=== PATIENT | male | born 1985 | race Caucasian/White ===

== ENCOUNTER 2018-06-23 11:16 | Inpatient (IN) | payer OTHER ==
[~2018-06-23] VITALS: Ht 167.6 cm; Wt 70.3 kg
[2018-06-23 12:16] LABS: BASOPHILS % 0.1 % (0.0-1.0); HEMATOCRIT 38.8 % (38.2-49.6); HEMOGLOBIN 13.9 g/dL (14.0-18.0); LYMPHOCYTES # (AUTO) 0.8 (1.0-3.2); LYMPHOCYTES % 4.4 % (18.0-39.1); MEAN CORPUSCULAR HEMOGLOBIN 28.8 pg (28-32); MEAN CORPUSCULAR HGB CONC 35.8 g/dL (31-35); MEAN CORPUSCULAR VOLUME 80.5 fL (81-99); MONOCYTES % 5.7 % (4.4-11.3); NEUTROPHILS # (AUTO) 15.7 (2.1-6.9); NEUTROPHILS % 89.4 % (38.7-80.0); PLATELET COUNT 179 x10e3/uL (140-360); RED BLOOD COUNT 4.82 x10e6/uL (4.3-5.7); RED CELL DISTRIBUTION WIDTH 12.9 % (11.7-14.4)
[2018-06-23 12:31] LABS: INR 0.98; PROTHROMBIN TIME 13.9 seconds (11.9-14.5)
[2018-06-23 12:32] LABS: PARTIAL THROMBOPLASTIN TIME 26.9 seconds (23.8-35.5)
[2018-06-23 12:35] LABS: ANION GAP 18.8 mmol/L (8-16); CALCIUM 8.8 mg/dL (8.4-10.2); CREATININE, SERUM 1.41 mg/dL (0.72-1.25); POTASSIUM 4.8 mmol/L (3.5-5.1)
[2018-06-23] MEDS ORDERED: SODIUM CHLORIDE 0.9% 1000ML 1,000 ML ONE (12:35)
[2018-06-23] MEDS ORDERED: SODIUM CHLORIDE 0.9% 1000ML 1,000 ML IV ONE ×2 (12:45→15:00)
--- NOTE | 2018-06-23 14:42 | Diagnostic Imaging Report ---
EXAMINATION: PA and lateral views of the chest. COMPARISON: None CLINICAL HISTORY: Cough, shortness of breath DISCUSSION: Lines/tubes: None. Lungs: The lungs are well inflated and clear. No pneumonia or pulmonary edema. Pleura: No pleural effusion or pneumothorax. Heart and mediastinum: The cardiomediastinal silhouette is normal. Bones and soft tissues: No acute bony abnormalities. IMPRESSION: No acute cardiopulmonary abnormalities. Signed by: Dr. Galileo Zepeda M.D. on 06/23/2018 2:38 PM
[2018-06-23 14:51] LABS: BILIRUBIN,URINE NEGATIVE (NEGATIVE); CLARITY,URINE SL CLOUDY (CLEAR); COLOR,URINE YELLOW (YELLOW); KETONES,URINE NEGATIVE (NEGATIVE); LEUKOCYTE ESTERASE ,URINE NEGATIVE (NEGATIVE); NITRITE,URINE NEGATIVE (NEGATIVE); PROTEIN,URINE DIPSTICK NEGATIVE (NEGATIVE); URINE UROBILINOGEN 0.2 mg/dL (0.2 - 1)
[2018-06-23 15:06] LABS: CREATINE KINASE MB 750.1 ng/mL (0-5.0)
[2018-06-23 15:09] LABS: BACTERIA,URINE FEW /HPF; EPITHELIAL CELLS,URINE RARE /LPF; RBC,URINE 0-5 /HPF (0-5)
[2018-06-23 15:30] LABS: AMPHETAMINES SCREEN,URINE NEGATIVE (NEGATIVE); BENZODIAZEPINES SCREEN,URINE POSITIVE (NEGATIVE); PHENCYCLIDINE SCREEN,URINE NEGATIVE (NEGATIVE)
[2018-06-23] MEDS ORDERED: ONDANSETRON HCL INJ 2MG/ML 2ML 2 MG/ML VIAL IV PRN (15:45)
--- OUTSIDE RECORDS SUMMARY | 2018-06-23 15:48 | XMS REPORT ---
Author Author [facility] Address Unknown Phone Unavailable Care Team Providers Care Training Facilitator Name Role Phone Daina REYES Unavailable Unavailable Problems This patient has no known problems. Allergies, Adverse Reactions, Alerts This patient has no known allergies or adverse reactions. Medications This patient has no known medications. Results Test Description Test Time Test Comments Text Results Atomic Results Result Comments CHEST 2 VIEWS 2018-06-23 14:37:00 [place] [address] Patient Name: FARTUN RAMIREZ MR #: [id number] : 1985 Age/Sex: 33/M Req #: [id number] Adm Physician: Ordered by: WAYNE WOLFE NP Report #: [id number] Location: ER Room/Bed: Procedure: [id number] DX/CHEST 2 VIEWS Exam Date: Exam Time: REPORT STATUS: Signed EXAMINATION: PA and lateral views of the chest. COMPARISON: None CLINICAL HISTORY: Cough, shortness of breath DISCUSSION: Lines/tubes: None. Lungs: The lungs are well inflated and clear. No pneumonia or pulmonary edema. Pleura: No pleural effusion or pneumothorax. Heart and mediastinum: The cardiomediastinal silhouette is normal. Bones and soft tissues: No acute bony abnormalities. IMPRESSION: No acute cardiopulmonary abnormalities. Signed by: Dr. Gal Rodríguez M.D. on 06/23/2018 2:38 PM Dictated By: GAL RODRÍGUEZ MD [id number] Transcribed By: CESAR on 06/23/18 1438 COPY TO: WAYNE WOLFE NP
[2018-06-23 15:49] LABS: ALBUMIN 4.8 g/dL (3.5-5.0); BILIRUBIN,DIRECT 0.3 mg/dL (0.0-0.5)
--- NOTE | 2018-06-23 16:12 | NUR ---
per mom pt recently had dental work done
[2018-06-23] MEDS: ACETAMINOPHEN 325 MG TAB PO PRN (16:18)
[2018-06-23] MEDS: SODIUM CHLORIDE 0.9% 1000ML 1,000 ML IV SCH ×3 (16:23→23:37)
--- NOTE | 2018-06-23 19:15 | NUR ---
RECEIVED RPEORT FROM CELINA PARKS DAY SHIFT NURSE.
[2018-06-23 20:21] VITALS: BP 112/66
[2018-06-23 20:50] LABS: CREATINE KINASE MB 526.7 ng/mL (0-5.0)
[2018-06-23 21:13] VITALS: BP 184/110
[2018-06-23 21:24] VITALS: BP 110/77
--- NOTE | 2018-06-23 21:24 | NUR ---
PT ARRIVING TO UNIT VIA WHEEL CHAIR WITH MOTHER AT SIDE, NO DISTRESS NOTED ,TELEMETRY NOTED, IV INFUSING PER ORDER, DENIES NEEDS, CALL LIGHT IN REACH, INSTRUCTED TO CALL WITH NEEDS
[2018-06-24] VITALS (7 sets, daily range): BP systolic 113–131; BP diastolic 58–85
--- NOTE | 2018-06-24 | NUR ---
PT IN ROOM CONFUSED, PT REMOVED TELEMETRY AND IV, PT STATES THAT HE DOESN'T KNOW HOW IT HAPPENED, MOTHER STATES THAT PT KEEPS GETTING OUT OF BED AND WALKING AROUND IN CONFUSION, PTs BED ALARM ACTIVATED, PT BEING MONITORED
[2018-06-24] MEDS: SODIUM CHLORIDE 0.9% 1000ML 1,000 ML IV SCH ×6 (02:20→23:37)
--- NOTE | 2018-06-24 04:50 | NUR ---
PT REMOVED IV FOR THE SECOND TIME WITH IV COVERED, PT CONFUSED AND DOESN'T KNOW "WHY" HE KEEPS REMOVING MEDICAL EQUIPMENT, SECOND NURSE IN ROOM REMOVES PTs MED BAG DUE TO PTs MOM STATING THAT WE SHOULD TAKE MEDS TO DOCUMENT WITH PT IS "TAKING", UNKNOWN SUBSTANCE OF CRUSHED WHITE AND DARK POWDER FOUND ON THE SIDE PTS BAG WITH UNKNOWN WHITE PILLS IN SMALL BAGS, MD TO BE MADE AWARE, CHARGE NURSE CALLED AND INFORMED OF SITUATION, CALL MADE TO REAL ESTATE DEVELOPER AND ADVISES TO INFORM MD AND RETURN BAG TO PTs MOM AND INSTRUCT HER TO TAKE BAG HOME, PTs MOTHER TAKEN IN HALLWAY AND INFORMED TO TAKE BAG HOME AND TO KEEP WATCH OF PT WITH BAG, PT BEING MONITORED, IV TO BE REPLACED
[2018-06-24 06:49] LABS: ALANINE AMINOTRANSFERASE 289 IU/L (0-55); ALBUMIN 3.8 g/dL (3.5-5.0); ALBUMIN/GLOBULIN RATIO 2.1 (0.8-2.0); ALKALINE PHOSPHATASE 50 IU/L (40-150); ANION GAP 12.1 mmol/L (8-16); BLOOD UREA NITROGEN 17 mg/dL (7-26); BUN/CREATININE RATIO 20 (6-25); CALCIUM 8.4 mg/dL (8.4-10.2); CARBON DIOXIDE 21 mmol/L (22-29); CHLORIDE 108 mmol/L (98-107); CREATININE, SERUM 0.84 mg/dL (0.72-1.25); EST GLOMERULAR FILTRATION RATE > 60 ML/MIN (60-); GLUCOSE 101 mg/dL (74-118); POTASSIUM 4.1 mmol/L (3.5-5.1); SODIUM 137 mmol/L (136-145)
[2018-06-24 07:17] LABS: CREATINE KINASE MB 267.4 ng/mL (0-5.0)
[2018-06-24 07:24] LABS: BASOPHILS % 0.3 % (0.0-1.0); EOSINOPHILS % 0.5 % (0.0-6.0); HEMATOCRIT 34.7 % (38.2-49.6); HEMOGLOBIN 12.2 g/dL (14.0-18.0); LYMPHOCYTES # (AUTO) 1.3 (1.0-3.2); LYMPHOCYTES % 18.3 % (18.0-39.1); MEAN CORPUSCULAR HEMOGLOBIN 28.7 pg (28-32); MEAN CORPUSCULAR HGB CONC 35.2 g/dL (31-35); MEAN CORPUSCULAR VOLUME 81.6 fL (81-99); MONOCYTES # (AUTO) 0.6 (0.2-0.8); MONOCYTES % 8.6 % (4.4-11.3); NEUTROPHILS # (AUTO) 5.3 (2.1-6.9); NEUTROPHILS % 71.8 % (38.7-80.0); PLATELET COUNT 129 x10e3/uL (140-360); RED BLOOD COUNT 4.25 x10e6/uL (4.3-5.7); RED CELL DISTRIBUTION WIDTH 13.1 % (11.7-14.4)
--- NOTE | 2018-06-24 07:30 | NUR ---
MD WILHELM INTO SEE PT, DISCUSSED POC
[2018-06-24 07:49] LABS: AMPHETAMINES SCREEN,URINE NEGATIVE (NEGATIVE); BENZODIAZEPINES SCREEN,URINE POSITIVE (NEGATIVE); PHENCYCLIDINE SCREEN,URINE NEGATIVE (NEGATIVE)
[2018-06-24] MEDS: NICOTINE 14 MG/EA PATCH TOP SCH (09:00)
--- NOTE | 2018-06-24 10:38 | History and Physical ---
REASON FOR ADMISSION: Rhabdomyolysis. HISTORY OF PRESENT ILLNESS: Patient is a 33-year-old gentleman who just got off a . He was feeling bad with overall body aches and then he was feeling like his left lower extremity was numb and cool. So, he presented to the emergency room where the ER doctor did a Doppler of the lower extremities that did not show any evidence of peripheral arterial disease as well as no venous issues. He did have significantly elevated CK consistent with rhabdomyolysis and slightly elevated creatinine of 1.4. So, he was brought in, placed on IV fluids. He had a urine drug screen that showed positive benzodiazepine. Overnight, patient was very confused and even at times combative and pulling out his IV on multiple occasions and appeared to be reaching for his toiletry bag where the nurse did saw evidence of a powdery substance in his toiletry bag. When I confronted the patient, he said he was not doing anything, and I said well the nurse again saw some powdery substance in your bag and he said there was no such thing and I asked him if it was okay if I looked into his toiletry bag because I needed to understand what I was dealing with and the nurse is present at all times and then he stated that he had no problems with me looking into the bag, so he voluntarily handed it to me. Upon inspection, I found evidence of 1 bag of heroin, 1 bag of black tar, 1 bag of cocaine, a little bag of Ecstasy as well as multiple bags of benzodiazepine and some Suboxone packages which was confiscated and given to hospital administration and the [place] police have already been called to dispose off these products. Repeat urine drug screen did still showed positive benzodiazepines. PAST MEDICAL HISTORY: He states former heroin abuser, on Suboxone. MEDICATIONS: None. ALLERGIES: NONE. SOCIAL HISTORY: Positive drug abuser, smoker. FAMILY HISTORY: Hypertension. PHYSICAL EXAMINATION: VITAL SIGNS: He is 98.2, pulse 92, blood pressure 113/61, sats 96% on room air. GENERAL: He is in no apparent distress. He is cooperative. LUNGS: Clear to auscultation bilaterally. ABDOMEN: Good bowel sounds. Soft, nontender. CARDIOVASCULAR: Regular rate and rhythm. EXTREMITIES: No clubbing, cyanosis. EXTREMITIES: His lower extremities are warm to touch. He did have palpable pulses. NEUROLOGIC: He is nonfocal. ASSESSMENT AND PLAN: 1. Rhabdomyolysis. Continue with IV fluids. 2. Acute kidney disease. We will continue to monitor but most likely we will improve with hydration. 3. Leukocytosis. Continue to monitor. 4. Multidrug complication. Please see the earlier progress note for further details. Please see hospital chart for details. Job#: [id number] VALENTINE
--- NOTE | 2018-06-24 12:10 | NUR ---
Nutrition Screen Note RD Recommendation for Physician: Changing diet to a regular diet. No renal restrictions are necessary at this time. Plan of Care: RD following, monitoring for adequacy and tolerance Nutrition reason for involvement: Nutrition Risk Trigger - MST Primary Diagnose(s): Rhabdomyolysis Ht: 66in Wt:155lbs BMI:25 kg/m2 IBW:142lbs RD Assessment:(06/24/2018) Initial encounter with patient. The Pt is eating well and denies any N,V,D, nor has any difficulty chewing or swallowing. Current Diet: Renal Diet Malnutrition Evaluation (06/24/2018) The patient does not meet criteria for a specified degree of malnutrition at this time. Will re-evaluate at follow-up as appropriate. Diet Education Needs Assessment: Diet education not indicated. Diet Adequacy: Meeting calorie needs, Meeting protein needs, Meeting fluid needs Tolerance: Tolerating PO Nutrition Care Level: Reid Piedra RD, LD, CNSC
[2018-06-24 14:30] LABS: CREATINE KINASE MB 168.1 ng/mL (0-5.0)
--- NOTE | 2018-06-24 17:50 | NUR ---
VOICES NO NEEDS AT THIS TIME, CALL LIGHT WITHIN REACH, FAMILY AT SIDE
--- NOTE | 2018-06-24 19:10 | NUR ---
REPORT RECEIVED FROM OFF GOING NURSE, PT RESTING IN BED ALERT AND ORIENTED, NO DISTRESS NOTED, IV INFUSING PER ORDER, TELEMETRY NOTED, CALL LIGHT IN REACH, INSTRUCTED TO CALL WITH NEEDS
[2018-06-25] VITALS (7 sets, daily range): BP systolic 131–136; BP diastolic 66–85
[2018-06-25] MEDS: SODIUM CHLORIDE 0.9% 1000ML 1,000 ML IV SCH ×6 (03:37→23:37)
--- NOTE | 2018-06-25 05:23 | NUR ---
PT RESTING IN BED WITH EYES CLOSED,NO DISTRESS NOTED, IV INFUSING PER ORDER, MOTHER AT BEDSIDE, CALL LIGHT IN REACH, INSTRUCTED TO CALL WITH NEEDS
[2018-06-25] MEDS: NICOTINE 14 MG/EA PATCH TOP SCH (09:00)
--- NOTE | 2018-06-25 09:15 | NUR ---
PT NOTED TO HAVE [address] IN [address], REMOVED BOTH, NEW ONE PLACED PER MD ORDER
--- NOTE | 2018-06-25 13:00 | NUR ---
TOLERATING PO, VOICES NO C/O AT THIS TIME, CALL LIGHT WITHIN REACH
--- NOTE | 2018-06-25 16:00 | NUR ---
PT NOTED TO HAVE 2 NICOTINE PATCHES ON AGAIN, REMOVED ONE NOT PLACED BY NURSE THIS AM, PT STATES "DOES NOT KNOW HOW IT GOT THERE"
--- NOTE | 2018-06-25 20:39 | NUR ---
RECEIVED PT IN BED AOX3 .NO ACUTE DISTRESS NOTED .PT DENIES PAIN CALL LIGHT WITH IN REACH.CONTINUE TO MONITOR
--- NOTE | 2018-06-25 22:18 | NUR ---
HR IS FLUCTUATING .HE CAME DOWN TO 36AND WENT UP TO [address] WILHELM .NO NEW ORDER JUST [id number] Addendum: 06/25/18 at 2222 by Homer Momin RN WRONG
--- NOTE | 2018-06-25 22:22 | NUR ---
HR IS FLUCTUATING .HR CAME DOWN TO 36AND WENT UP TO [address] WILHELM .NO NEW ORDER JUST [id number]
[2018-06-26] VITALS (8 sets, daily range): BP systolic 123–155; BP diastolic 61–85
[2018-06-26] MEDS: SODIUM CHLORIDE 0.9% 1000ML 1,000 ML IV SCH ×5 (03:37→18:10)
--- NOTE | 2018-06-26 06:05 | NUR ---
PT RESTING .TELE SHOWS BRADYCARDIA .DR WILHELM ORDER FOR CARDIOLOGY CONSULT.CALL LIGHT WITH IN REACH .CONTINUE TO MONITOR
--- NOTE | 2018-06-26 07:24 | NUR ---
REPORT GIVEN TO THE ONCOMING NURSE
--- NOTE | 2018-06-26 08:01 | NUR ---
spoke with md parkinson covering for blair regarding new consult at this time
[2018-06-26] MEDS: NICOTINE 14 MG/EA PATCH TOP SCH (09:40)
--- NOTE | 2018-06-26 12:59 | NUR ---
TELE CALLED PT HR IS 37 . WENT TO SEE PT . IT IS ASYMPTOMATIC. IS IN N O S.S OF DISTRESS. PAGED METS FOR ORDERS . SPOKE WITH AUTO BODY MECHANIC REGARDING THIS . AUTO BODY MECHANIC ASSESSING PT AT THIS TIME
--- NOTE | 2018-06-26 13:28 | NUR ---
SPOKE WITH MD WILHELM REGREESE LOW HR. ORDERS FOR TRANSFERRING TO IMCU GIVEN. WAITING ON BED AT THIS TIME
--- NOTE | 2018-06-26 14:58 | NUR ---
NOTIFIED METS REGARDING LOW HR. ROUNDED AND STATES PT CAN STAY ON FLOOR FOR NOW LONG HE IS ASYMPTOMATIC, AND LOW HR OF 38 DOES NOT SUSTAIN . ORDERS RECEIVED
--- NOTE | 2018-06-26 15:47 | NUR ---
CASE MANAGEMENT INITIAL ASSESSMENT Associate Professor Of Chemistry to bedside to discuss plan of care with patient/family. CM/SW role and care transitions discussed. Anticipated discharge plan discussed along with duration of care. CM/SW discussed patients right to make decisions in care. CM/SW work hours given. Patient lives: with girlfrienfito Pearl in [place] Admit/Transfer: Thru ED Hospital/ER visits since last admit: has not been hospitalized since pt was a child POA/Emergency contact: girlfriend Ryanne De Santiago [phone] Current/Previous Home Health: none PCP/Follow-up Care: does not have PCP Current/Previous DME: none; pt is independent with all needs Medications (referring to index hospitalization or the first time you were in the hospital) a. Were changes made in your medications when you were in the hospital on [date of index hospitalization]? n/a b. Did you understand the changes? n/a c. Were you able to obtain your new medications right away? n/a d. Were you able to take your medications like the doctor wanted you to? n/a e. Did the hospital give you an accurate, easy to understand list of medications when you left? n/a Scale of 1-10 how comfortable does patient feel with disease management in outpatient settin Other Services: none Employment Status: employed at [employer] Areas of Concerns: drug abuse Referral Needs: drug rehab Education Needs: drug cessation IMM/SEBASTIAN given and signed (if applicable): n/a Goal for discharge: pt states he plans to go back home to [place] and go straight to rehab. Would like to go to [facility]. Stated his girlfriend is in [place] now and trying to arrange for him to go there. Would like for CM to send clinicals to them F [phone]. Choice letter signed and placed in chart. Copy to pt. CM reached out Dr. Hines for discharge plan. Awaiting response. CM/SW left business card at the bedside with contact information. Name and number was also written on the patients whiteboard. Patient verbalized understanding of discussion. CM will follow-up with ongoing discharge and transition of care needs.
--- NOTE | 2018-06-26 16:29 | Consultation ---
DATE OF CONSULTATION: CARDIOLOGY CONSULTATION HISTORY OF PRESENT ILLNESS: This is a 33-year-old man with a history of heroin abuse and multisubstance abuse, who presented with generalized unwell feeling, body aches, and lower extremity pain and numbness. Peripheral vascular disease assessment revealed normal vasculature. He had significantly elevated creatinine kinase consistent with rhabdomyolysis. The patient states that he had chills and fevers with shakes at home as he is currently detoxing off his heroin. The patient was found to have drugs in his toiletry bag here in the hospital. The patient states that he is returning to [place] for inpatient rehabilitation after leaving this facility. We were consulted due to bradycardia and atypical chest pain. The patient states that he used to work out and exercise without any chest pain. He has no other cardiovascular medical problems. The patient states his father had a bicuspid aortic valve. REVIEW OF SYSTEMS: A 12-point review of systems was conducted, and is negative other than mentioned above in the HPI. PAST MEDICAL HISTORY: Multisubstance drug abuse. PAST SURGICAL HISTORY: None recently reported. PAST FAMILY HISTORY: Father with bicuspid valve. SOCIAL HISTORY: As stated above. ALLERGIES: NO KNOWN DRUG ALLERGIES. MEDICATIONS: See medication reconciliation form. PHYSICAL EXAMINATION VITALS: Temperature is 97.4, heart rate is ranging from high 30s to 50s, respirations are 16, blood pressure is 135/78, oxygen saturation is 100% on room air. GENERAL: He is an ill-appearing man lying comfortably in bed. No apparent distress. CARDIOVASCULAR: He is bradycardic. Regular rhythm. No murmurs. LUNGS: Clear to auscultation. ABDOMEN: Soft and nontender. EXTREMITIES: No edema. VASCULAR: Two plus pulses. SKIN: Warm, dry and intact. NEUROLOGIC: No focal deficits noted. LABORATORY DATA: Hemoglobin 12.2, platelets 129,000, white blood cell count 7.3. Creatinine is 0.84. AST is 583, ALT is 289. Creatinine kinase on admission was 19,576 and currently 4847. Troponin I is negative at 0.071. IMPRESSION 1. Rhabdomyolysis. 2. Acute kidney disease, improved. 3. Polysubstance abuse. 4. Sinus bradycardia with sinus arrhythmia. RECOMMENDATIONS: The patient is currently asymptomatic from his bradycardia standpoint. Continue to monitor heart rates on telemetry. An echocardiogram has been performed. However, I am unable to review it within the system. Otherwise, continue intravenous fluids for his rhabdomyolysis and other medical therapies for his drug use. Thank you for the consultation. Job#: [id number] SADIQ
--- NOTE | 2018-06-26 20:30 | NUR ---
RECEIVED PT IN BED AOX3 .RESPIRATIONS ARE EVEN AND UNLABORED .TELE #15 SINUS ALEKSANDRA .NS AT 250CC/HR RUNNING .DENIES PAIN CALL LIGHT WITH IN REACH .CONTINUE TO MONITOR .
[2018-06-27] VITALS (8 sets, daily range): BP systolic 113–139; BP diastolic 56–72
[2018-06-27] MEDS: SODIUM CHLORIDE 0.9% 1000ML 1,000 ML IV SCH (00:42)
--- NOTE | 2018-06-27 06:33 | NUR ---
IV OUT TRY TO PUT .NEW ONE NOT ABLE TO GET .NOTIFIED DR WILHELM .HE SAID OK .
--- NOTE | 2018-06-27 07:14 | NUR ---
REPORT GIVEN TO THE ON COMING NURSE
[2018-06-27] MEDS: NICOTINE 14 MG/EA PATCH TOP SCH ×2 (07:59→09:00)
[2018-06-27] MEDS: ACETAMINOPHEN 325 MG TAB PO PRN ×2 (09:00→20:48)
--- NOTE | 2018-06-27 13:00 | NUR ---
SPOKE WITH MD RAMIREZ REGARDING DC ORDERS. MD LEDEZMA WILL LIKE TO SEE PT PRIOR TO SENDING PT HOME .STATES HE WILL COME ROUND ON PT AROUND 1600.
--- NOTE | 2018-06-27 14:03 | NUR ---
Per Dr. Hines ok to send clinical to Rehab center in [place]. CM called [facility] [phone] and asked to verify fax number to send clinical. Faxed clinical to [phone].
--- NOTE | 2018-06-27 17:18 | NUR ---
Pt stated that [facility] does not have bed availability for 2 weeks. Stated that he now wants to get into [facility]. Asked CM to fax clinicals there. Faxed to [phone].
--- NOTE | 2018-06-27 19:56 | Progress Note ---
DATE: June 27, 2018 CARDIOLOGY PROGRESS NOTE SUBJECTIVE: No major events overnight. OBJECTIVE: VITAL SIGNS: Temperature 97.2, pulse 65, respiratory rate 18, blood pressure 113/72, satting 99% on room air. GENERAL: Well developed, well nourished, no acute distress. CARDIOVASCULAR: Regular rate and rhythm. No murmurs, rubs, or gallops. LUNGS: Clear to auscultation. ABDOMEN: Soft, nontender, nondistended. NEURO AND PSYCH: Alert and oriented to person, place, and time. Normal affect. INPATIENT MEDICATIONS: Reviewed. LABORATORY DATA: Reviewed. ASSESSMENT AND PLAN: 1. Rhabdomyolysis. 2. Acute kidney injury. 3. Polysubstance abuse including intravenous drug use. 4. Sinus bradycardia with sinus arrhythmia. RECOMMENDATIONS: Patient is asymptomatic from bradycardia standpoint. No evidence of any AV blocks. No indication for pacemaker. Echocardiogram reviewed, shows normal LV size and function, normal valves, no evidence of vegetation. Thank you for this consult. Will continue to follow. Job#: [id number]
--- NOTE | 2018-06-27 21:00 | NUR ---
ASSESSMENT DONE.NO RESP.DISTRESS.HR 48.RESTING IN THE BED.BED LOCKED AN DIN LOWEST POSITION.PHONE AND CALL LIGHT WITHIN REACH.INSTRUCTED TO CALL FOR ASSISTANCE NEEDED.KEEP MONITOR THE PT.
[2018-06-28 00:26] VITALS: BP 116/56
[2018-06-28 00:36] VITALS: BP 130/69
[2018-06-28 04:00] VITALS: BP 136/80
--- NOTE | 2018-06-28 06:26 | Discharge Summary ---
DISCHARGE DIAGNOSES 1. Rhabdomyolysis. 2. Palpitations. 3. Acute kidney injury, resolved. 4. History of multidrug abuse. 5. Tobacco abuse. HISTORY OF PRESENT ILLNESS: Patient is a gentlemen who came in off a plane with leg discomfort. He was brought into the emergency room and noticed his Dopplers were negative, both on the arterial and venous. He was noted to have severe rhabdomyolysis. After discussion with the patient, he does have a history of multidrug abuse. He tested positive for benzodiazepines. He was brought in and placed on IV fluids. He had an echo done for his palpitations, which was unremarkable. Valves were normal with no evidence of bicuspid aortic valve. EF was 60%. His CK levels continued to fall each day. Patient did well. At the time of discharge, he was ambulating well and eating well. He was in good spirits. He is going to follow up as an outpatient for outpatient rehab for his multidrug abuse. Please see hospital chart for full details. INDU WILHELM MD Job#: [id number] [place]
--- NOTE | 2018-06-28 06:50 | NUR ---
Report given to the oncoming rn.walking rounds done.stable condition.
--- NOTE | 2018-06-28 07:09 | NUR ---
Received patient mid fowlers position, call light within reach. AAOX4 to time, person,place, situation. Respirations even and unlabored. Denies pain. Instructed to use call light for assistance.
[2018-06-28 08:00] VITALS: BP 116/87
--- NOTE | 2018-06-28 08:00 | NUR ---
Paged to notify of discharge. Awaiting for clearance.
[2018-06-28 08:07] VITALS: BP 116/87
[2018-06-28] MEDS: NICOTINE 14 MG/EA PATCH TOP SCH (08:07)
[2018-06-28] MEDS: ACETAMINOPHEN 325 MG TAB PO PRN (08:07)
--- NOTE | 2018-06-28 10:30 | NUR ---
Repaged to notify of discharge.
[2018-06-28 12:02] VITALS: BP 135/62
--- NOTE | 2018-06-28 12:15 | NUR ---
aware of tele reading SB 44 to SR. Per okay to discharge from cardiac standpoint
--- NOTE | 2018-06-28 13:13 | NUR ---
sPOKE WITH PATIENT ABOUT FACILITIES LOCAL AND OUT OF STATE, LET KNOW REGULATION AND DIFFERENCE BETWEEN TRANSFER AND SELF ADMISSIONS. PT HAS ALL INFORMATION HE NEEDS TO GO OUT OF STATE AND BE ADMITTED TO THAT FACILITY A WALK IN.
--- NOTE | 2018-06-28 13:15 | NUR ---
Refused wheelchair. Accompanied by PCT and family member to personal car. AAOX4 to time, person, place, situation. Respirations even and unlabored. Discharge instructions and all personal belongings taken with patient.
== END 2018-06-28 13:15 | disposition home or self-care (01) | DRG 558 ==
LOC: ER 11:16 → ERHOLD 15:45 → MED/SURG 21:24
PROVIDERS: ADMIT Internal Medicine; ATTEND Internal Medicine
DX: M62.82 Rhabdomyolysis (principal); N17.9 Acute kidney failure, unspecified; F11.20 Opioid dependence, uncomplicated; R00.1 Bradycardia, unspecified; R07.89 Other chest pain; F19.10 Other psychoactive substance abuse, uncomplicated; F17.210 Nicotine dependence, cigarettes, uncomplicated; D72.829 Elevated white blood cell count, unspecified; Z82.79 Family history of other congenital malformations, deformations and chromosomal abnormalities
CPT/HCPCS: 36415; 71046; 80048; 80053; 80076; 80307; 81001; 82550; 82553; 83605; 84484; 85025; 85610; 85651; 85730; 86021; 86039; 86162; 87040; 93005; 93306; 93926; 93971; 99284; J7030